=== PATIENT | male | born 1965 | race Caucasian/White ===

== ENCOUNTER 2019-03-22 09:50 | Day surgery (SDC) | payer BC ==
[~2019-03-22 09:50] MED LIST: Lactated Ringers 1,000 ML IV SCH
[2019-03-22] MEDS ORDERED: Acetaminophen 1,000 MG in Premix Bag 1 BAG IV ONE (10:52)
--- NOTE | 2019-03-22 10:53 | PCM.PREANE ---
Preanesthetic Assessment - Anesthesia/Transfusion/Family Hx Anesthesia History: Prior Anesthesia Without Reaction Family History of Anesthesia Reaction: No Transfusion History: No Prior Transfusion(s) - Review of Systems General: No Symptoms Pulmonary: No Symptoms Cardiovascular: No Symptoms Gastrointestinal: No Symptoms Neurological: Headache Other: Reports: None - Physical Assessment NPO Status Date: 03/22/19 NPO Status Time: 08:00 Vital Signs: Last Vital Signs Temp 97.2 F 03/22/19 10:00 Pulse 89 03/22/19 10:00 Resp 18 03/22/19 10:00 BP 151/84 H 03/22/19 10:00 Pulse Ox 98 03/22/19 10:00 Height: 6 ft 2 in Weight: 104.326 kg ASA Class: 2 Mental Status: Alert & Oriented x3 Airway Class: Mallampati = 2 Dentition: Reports: Dentures (upper) ROM/Head Extension: Full Lungs: Clear to Auscultation, Normal Respiratory Effort Cardiovascular: Regular Rate, Regular Rhythm - Allergies Allergies/Adverse Reactions: Allergies Allergy/AdvReac Type Severity Reaction Status Date / Time Penicillins Allergy Hives Verified 03/21/19 10:07 - Blood Blood Available: No - Anesthesia Plan Pre-Op Medication Ordered: None - Acknowledgements Anesthesia Type Planned: General Anesthesia Pt an Appropriate Candidate for the Planned Anesthesia: Yes Alternatives and Risks of Anesthesia Discussed w Pt/Guardian: Yes Pt/Guardian Understands and Agrees with Anesthesia Plan: Yes PreAnesthesia Questionnaire HEENT History: Reports: Other (See Below) Other HEENT History: upper denture Cardiovascular History: Reports: None Respiratory History: Reports: None Gastrointestinal History: Reports: Other (See Below) Other Gastrointestinal History: occasional heartburn Genitourinary History: Reports: None Musculoskeletal History: Reports: None Neurological History: Reports: None Psychiatric History: Reports: None Endocrine/Metabolic History: Reports: None Hematologic History: Reports: None Immunologic History: Reports: None Oncologic (Cancer) History: Reports: None Dermatologic History: Reports: None - Past Surgical History Head Surgeries/Procedures: Reports: None HEENT Surgical History: Reports: Tonsillectomy Cardiovascular Surgical History: Reports: None Respiratory Surgical History: Reports: None GI Surgical History: Reports: None Male Surgical History: Reports: None Endocrine Surgical History: Reports: None Neurological Surgical History: Reports: None Musculoskeletal Surgical History: Reports: None Oncologic Surgical History: Reports: None Dermatological Surgical History: Reports: None - SUBSTANCE USE Smoking Status *Q: Former Smoker Tobacco Use Within Last Twelve Months: Smokeless Tobacco - HOME MEDS Home Medications: Home Meds . [No Known Home Meds] 03/21/19 [History] - CURRENT (IN HOUSE) MEDS Current Meds: Current Medications Lactated Ringer's (Ringers, Lactated) 1,000 mls @ 100 mls/hr IV ASDIRECTED [facility] Last Admin: 03/22/19 10:30 Dose: 100 mls/hr
[2019-03-22] MEDS ORDERED: Propofol 200 MG/20 ML SDV ONE (12:05)
[2019-03-22] MEDS ORDERED: Midazolam 1 MG/ML 2 ML SDV ONE (12:05)
[2019-03-22] MEDS ORDERED: fentaNYL 250 MCG/5 ML SDV ONE (12:06)
[2019-03-22] MEDS ORDERED: Lidocaine 2% 5 ML SDV ONE (12:07)
[2019-03-22] MEDS ORDERED: Bupivacaine 0.5% 30 ML SDV ONE (12:08)
[2019-03-22] MEDS ORDERED: Octyl 2-Cyanoacrylate 1 Tube ONE (12:08)
[2019-03-22] MEDS ORDERED: Ondansetron 4 MG/2 ML SDV ONE ×2 (12:08→13:12)
[2019-03-22] MEDS ORDERED: Dexamethasone 4 MG/ML 5 ML MDV ONE (12:08)
[2019-03-22] MEDS ORDERED: Clindamycin Phosphate in D5W 600 MG in Premix Bag 1 BAG IV ONE ×2 (12:34)
[2019-03-22] MEDS ORDERED: Clindamycin Phosphate in D5W 50 ML ONE (12:38)
[2019-03-22] MEDS ORDERED: Ketorolac 30 MG/ML SDV ONE (13:12)
--- NOTE | 2019-03-22 13:43 | PCM.OPNOTE ---
- General Post-Op/Procedure Note Date of Surgery/Procedure: 03/22/19 Operative Procedure(s): Umbilical hernia repair Findings: 8mm umbilical hernia containing fat, incarcerated Pre Op Diagnosis: Umbilical hernia, incarcerated Post-Op Diagnosis: same Anesthesia Technique: General LMA Primary Surgeon: Neela Fitch Fluid Replacement, Intraop: 800 EBL in mLs: 5 Condition: Good
--- NOTE | 2019-03-22 14:44 | PCM.POSTAN ---
POST ANESTHESIA ASSESSMENT - MENTAL STATUS Mental Status: Alert, Oriented - VITAL SIGNS Vital Signs: Last Vital Signs Temp 97.2 F 03/22/19 14:05 Pulse 76 03/22/19 14:35 Resp 16 03/22/19 14:35 BP 124/76 03/22/19 14:35 Pulse Ox 94 L 03/22/19 14:35 - RESPIRATORY Respiratory Status: Respiratory Rate WNL, Airway Patent, O2 Saturation Stable - CARDIOVASCULAR CV Status: Pulse Rate WNL, Blood Pressure Stable - GASTROINTESTINAL GI Status: No Symptoms - POST OP HYDRATION Hydration Status: Adequate & Stable
--- NOTE | 2019-03-22 14:45 | PCM48HPAN ---
Post Anesthesia Note - EVALUATION WITHIN 48HRS OF ANESTHETIC Vital Signs in Normal Range: Yes Patient Participated in Evaluation: Yes Respiratory Function Stable: Yes Airway Patent: Yes Cardiovascular Function Stable: Yes Hydration Status Stable: Yes Pain Control Satisfactory: Yes Nausea and Vomiting Control Satisfactory: Yes Mental Status Recovered: Yes Vital Signs: Last Vital Signs Temp 97.2 F 03/22/19 14:05 Pulse 76 03/22/19 14:35 Resp 16 03/22/19 14:35 BP 124/76 03/22/19 14:35 Pulse Ox 94 L 03/22/19 14:35
--- NOTE | 2019-03-22 18:50 | OR ---
SURGEON: NEELA FITCH MD DATE OF PROCEDURE: 03/22/2019 PREOPERATIVE DIAGNOSIS: Umbilical hernia. POSTOPERATIVE DIAGNOSIS: Umbilical hernia. PROCEDURE PERFORMED: Umbilical hernia repair. PRIMARY SURGEON: Neela Fitch MD. ANESTHESIA: General LMA. FLUIDS: 800 mL of crystalloid. ESTIMATED BLOOD LOSS: 5 mL. FINDINGS: An 8 mm defect just to the right of the umbilical stalk containing incarcerated fat. COMPLICATIONS: None. INDICATIONS: The patient is a 53-year-old male who presents with a symptomatic umbilical hernia that is incarcerated. I explained the need for repair. I explained the procedure; expected perioperative course; and risks including bleeding, infection, or damage to surrounding structures including perforation. The patient verbalized understanding and wishes to proceed. PROCEDURE IN DETAIL: The patient was brought into the operating room and placed on the OR table in supine position. A time-out was completed verifying the patient's name, age, date of , allergies, and procedure to be performed. General LMA anesthesia was induced. The abdomen was prepped and draped in usual standard fashion. I anesthetized the periumbilical area with 0.5% Marcaine plain. A semi-circular incision was made along the right side of the umbilical skin over the top of the hernia sac. This was done using a 15 blade. Cautery was then used to dissect into the level of the subcutaneous fat. I first dissected the lateral edge of the hernia sac out using a combination of sharp dissection with the Metzenbaum scissors and electrocautery. I then elevated the umbilical skin and sharply took down the umbilical sac from underneath the umbilical skin. This was carried all the way down to the fascia. The hernia sac was cleared away from the remainder of its attachments using Metzenbaum scissors down to the level of the fascia. Once this was all cleared away, the hernia sac was entered. It contained preperitoneal fat. The adhesions of this to the hernia sac were taken down sharply using Metzenbaum scissors. I was then able to reduce the hernia sac contents through the fascial defect. The hernia sac was taken off sharply and passed off the table. The fascial defect measured 8 mm in size. The fascia was then closed with 0 Ethibond suture, which was sutured in a [id number] fashion. This adequately closed the fascia. Electrocautery was used to achieve hemostasis within the wound. The wound was then closed with interrupted 3-0 Vicryl sutures in multiple layers bringing together the umbilical skin and subcutaneous fat layer. The skin was then closed with a running 4-0 Monocryl stitch. Dermabond and sterile dressings were applied. The patient tolerated the procedure well and was transferred to the PACU in stable condition. SHERITA PHAM /[id number]
== END 2019-03-22 14:40 | disposition home or self-care (01) ==
LOC: MW.SDS 09:50
PROVIDERS: ATTEND Surgery
DX: K42.0 Umbilical hernia with obstruction, without gangrene (principal); Z87.891 Personal history of nicotine dependence; Z88.0 Allergy status to penicillin
CPT/HCPCS: 49587; A9270; J0131; J1100; J1885; J2001; J2250; J2405; J2704; J3010; J3490; J7120; S0077; 00750